=== PATIENT | female | born 1965 | race Caucasian/White ===

== ENCOUNTER → 2019-02-25 | Outpatient (CLI) | payer BC | LOC: LL.DI 16:56 | PROVIDERS: ATTEND Family Medicine | DX: M54.2 Cervicalgia (principal); S19.9XXA Unspecified injury of neck, initial encounter; M47.812 Spondylosis without myelopathy or radiculopathy, cervical region; M25.532 Pain in left wrist; M19.032 Primary osteoarthritis, left wrist; X58.XXXA Exposure to other specified factors, initial encounter | CPT/HCPCS: 70360; 73110-LT ==

== ENCOUNTER 2020-02-06 11:27 | Day surgery (SDC) | payer BC ==
[~2020-02-06 11:27] MED LIST: Lactated Ringers 1,000 ML IV SCH; Midazolam 1 MG/ML 2 ML SDV ONE; Propofol 200 MG/20 ML SDV ONE; Sodium Chloride 0.9% 10 ML Syringe FLUSH PRN; fentaNYL 100 MCG/2 ML SDV ONE
[2020-02-06] MEDS ORDERED: Midazolam 1 MG/ML 2 ML SDV ONE (13:22)
[2020-02-06] MEDS ORDERED: Propofol 200 MG/20 ML SDV ONE ×2 (13:22→13:24)
--- NOTE | 2020-02-06 13:50 | PCM.HPR ---
H & P Addendum review - H & P Addendum Review Date of Original H & P: 01/30/20 Date Reviewed: 02/06/20 Time Reviewed: 13:05 Patient was Examined: No Changes
--- NOTE | 2020-02-06 13:51 | PCM.OPNOTE ---
- General Post-Op/Procedure Note Date of Surgery/Procedure: 02/06/20 Operative Procedure(s): Colonoscopy Findings: Normal Pre Op Diagnosis: Screening Post-Op Diagnosis: Same Anesthesia Technique: THA Primary Surgeon: King Perez Anesthesia Provider: Mera Caballero Complications: None Condition: Good
--- NOTE | 2020-02-06 14:55 | OR ---
Date of Procedure: 02/06/2020 PREOPERATIVE DIAGNOSIS: Colon screening. POSTOPERATIVE DIAGNOSIS: Normal colonoscopy. PROCEDURE: Colonoscopy. ANESTHESIA: IV sedation. PROCEDURE IN DETAIL: The patient was brought to the procedure room where she was placed on her left side and IV sedation administered. Digital rectal exam was performed, which was normal. Colonoscope was inserted and advanced to the level of the cecum with some difficulty getting through a tortuous colon. I was able to reach the cecum which was confirmed by identifying the appendiceal lumen and ileocecal valve. Prep was good and surfaces were well visualized. Upon withdrawing the scope, the ascending, transverse, and descending colon were normal in appearance. Sigmoid colon and rectum were normal. Retroflexion was normal. Air was removed and the scope withdrawn. Patient tolerated the procedure well and returned to recovery in stable condition. Recommend repeat colonoscopy again in 5 years because of her strong family history of colon cancer in second-degree relatives. BOBBI ORTEZ MD /[id number]
[2020-02-06 15:55] VITALS: BP 114/70; PULSE 68
== END 2020-02-06 15:00 | disposition home or self-care (01) ==
LOC: LL.SDS 11:27
PROVIDERS: ATTEND Surgery
DX: R19.4 Change in bowel habit (principal); E03.9 Hypothyroidism, unspecified; E78.5 Hyperlipidemia, unspecified; Z80.0 Family history of malignant neoplasm of digestive organs; Z88.8 Allergy status to other drugs, medicaments and biological substances; Z88.7 Allergy status to serum and vaccine; Z79.899 Other long term (current) drug therapy; Z01.812 Encounter for preprocedural laboratory examination; Z20.828 Contact with and (suspected) exposure to other viral communicable diseases
CPT/HCPCS: 00812; J2250; J2704; J7120; U0002

== ENCOUNTER 2024-02-13 18:40 | Emergency (ER) | payer BC ==
[2024-02-13] MEDS: ALPRAZolam 0.25 MG Tab PO ONE (19:00)
[2024-02-13 20:22] VITALS: BP 141/71; PULSE 95
== END 2024-02-13 20:20 | disposition home or self-care (01) ==
LOC: LL.ED 18:40
DX: T74.91XA Unspecified adult maltreatment, confirmed, initial encounter (principal); F41.9 Anxiety disorder, unspecified; I10 Essential (primary) hypertension; E78.00 Pure hypercholesterolemia, unspecified; E03.9 Hypothyroidism, unspecified; Z90.710 Acquired absence of both cervix and uterus; Z79.899 Other long term (current) drug therapy; Z79.890 Hormone replacement therapy; Z88.7 Allergy status to serum and vaccine; Z88.8 Allergy status to other drugs, medicaments and biological substances
CPT/HCPCS: 99284; A9270-GY

== ENCOUNTER 2025-01-30 11:12 | Day surgery (SDC) | payer BC ==
[~2025-01-30 11:12] MED LIST changes: -Lactated Ringers 1,000 ML IV SCH; -fentaNYL 100 MCG/2 ML SDV ONE
[2025-01-30] MEDS: Lactated Ringers 1,000 ML IV SCH (11:19)
[2025-01-30 12:41] VITALS: BP 146/89; PULSE 65
== END 2025-01-30 13:04 | disposition home or self-care (01) ==
LOC: LL.SDS 11:12
PROVIDERS: ATTEND Surgery
DX: Z12.11 Encounter for screening for malignant neoplasm of colon (principal); E89.0 Postprocedural hypothyroidism; R73.03 Prediabetes; Z88.8 Allergy status to other drugs, medicaments and biological substances; Z88.7 Allergy status to serum and vaccine; Z79.899 Other long term (current) drug therapy; Z79.890 Hormone replacement therapy; Z86.0100 Personal history of colon polyps, unspecified
CPT/HCPCS: 00811; J2250; J2704; J7120